=== PATIENT | male | born 1970 | race Caucasian/White ===

== ENCOUNTER 2021-12-21 10:09 | Day surgery (SDC) | payer BC, OTHER ==
[~2021-12-21 10:09] MED LIST: Lactated Ringers 1,000 ML IV SCH
[2021-12-21] MEDS ORDERED: Lactated Ringers 1,000 ML IV ONE (10:33)
[2021-12-21] MEDS ORDERED: Propofol 200 MG/20 ML SDV ONE (11:41)
[2021-12-21] MEDS ORDERED: Lidocaine 2% 5 ML SDV ONE (11:41)
[2021-12-21] MEDS ORDERED: fentaNYL 100 MCG/2 ML SDV ONE (11:41)
[2021-12-21] MEDS ORDERED: Ondansetron 4 MG/2 ML SDV ONE (13:28)
[2021-12-21] MEDS ORDERED: Lactated Ringers 1,000 ML IV SCH (14:00)
[2021-12-21 14:13] VITALS: BP 114/73; PULSE 65
== END 2021-12-21 14:17 | disposition home or self-care (01) ==
LOC: MW.SDS 10:09
PROVIDERS: ATTEND Surgery
DX: Z12.11 Encounter for screening for malignant neoplasm of colon (principal); I10 Essential (primary) hypertension; E78.5 Hyperlipidemia, unspecified; Z79.899 Other long term (current) drug therapy; Z98.890 Other specified postprocedural states; Z72.89 Other problems related to lifestyle; Z83.71 Family history of colonic polyps; Z80.0 Family history of malignant neoplasm of digestive organs; Z86.010 Personal history of colon polyps
CPT/HCPCS: 45378; J2405; J2704; J3010; J7120